=== PATIENT | female | born 1995 | race Caucasian/White ===

== ENCOUNTER 2017-05-03 01:16 | Emergency (ER) | payer OTHER ==
[~2017-05-03] VITALS: Ht 165.1 cm; Wt 88.0 kg
[2017-05-03 02:38] VITALS: BP 120/90
== END 2017-05-03 02:39 | disposition home or self-care (01) ==
LOC: ED 02:33
DX: L24.9 Irritant contact dermatitis, unspecified cause (principal); Z77.098 Contact with and (suspected) exposure to other hazardous, chiefly nonmedicinal, chemicals
CPT/HCPCS: 99281